=== PATIENT | female | born 1990 | race Caucasian/White ===

== ENCOUNTER 2023-04-24 12:40 | Inpatient (IN) | payer BC ==
[2023-04-24] MEDS: ELECTROLYTE-148 SOLN 1,000 ML IV SCH (13:00)
[2023-04-24 13:25] VITALS: BMI 25.4
[2023-04-24 13:40] LABS: BASO % 0.4 % (0-2.0); EOS % 0.3 % (0-4.5); HEMATOCRIT 37.8 % (32.4-45.2); HEMOGLOBIN 12.6 GM/dL (10.7-15.3); LYMPH % 14.4 % (8-40); MCH 30.6 pg (25.7-33.7); MCHC 33.5 g/dl (32.0-36.0); MEAN CELL VOLUME 91.3 fl (80-96); MEAN PLT VOLUME 7.1 fl (7.5-11.1); MONO % 5.5 % (3.8-10.2); NEUT % 79.4 % (42.8-82.8); PLATELET COUNT 338 10^3/uL (134-434); RBC 4.13 M/mm3 (3.60-5.2); RDW 13.1 % (11.6-15.6); WHITE BLOOD COUNT 12.7 K/mm3 (4.0-10.0)
[2023-04-24] MEDS ORDERED: FENTANYL/BUPIVACAINE/NS/PF - PCEA - 50 ML DISP.SYRIN EP ONE ×2 (13:41→17:54)
[2023-04-24 14:00] LABS: POTASSIUM 4.2 mmol/L (3.5-5.1)
[2023-04-24 14:02] LABS: BLOOD UREA NITROGEN 9.1 mg/dL (7-18); CALCIUM 8.9 mg/dL (8.5-10.1)
[2023-04-24 14:06] LABS: CREATININE 0.7 mg/dL (0.55-1.3)
[2023-04-24] MEDS ORDERED: NALOXONE HCL 0.4 MG/ML VIAL IVPUSH PRN (14:09)
[2023-04-24] MEDS: FENTANYL/BUPIVACAINE/NS/PF - PCEA - 50 ML DISP.SYRIN EP SCH (14:10)
[2023-04-24] MEDS ORDERED: LIDOCAINE HCL 1% PRESERVATIVE FREE - 30ML VIAL ONE (14:34)
[2023-04-24] MEDS ORDERED: OXYTOCIN 20 UNITS in 0.9% NS 20 UNIT/1,000 ML INFUS.BAG IV ONE (14:35)
[2023-04-24 15:10] LABS: ACTIVATED PTT 28.6 SECONDS (25.2-36.5); INR 0.91 (0.83-1.09); PROTHROMBIN TIME (PATIENT) 10.6 SEC (9.7-13.0)
[2023-04-24] MEDS: OXYTOCIN 30 UNITS in 0.9% NS 30 UNIT/500 ML INFUS.BAG IVPB SCH (15:30)
[2023-04-24] MEDS: OXYTOCIN 20 UNITS in 0.9% NS 20 UNIT/1,000 ML INFUS.BAG IV SCH (19:10)
[2023-04-24] MEDS ORDERED: WITCH HAZEL 50% (TUCKS) 40 PAD/JAR PAD TP PRN (19:39)
[2023-04-24] MEDS ORDERED: METHYLERGONOVINE MALEATE 0.2 MG/1 ML AMP IM PRN (19:39)
[2023-04-24] MEDS ORDERED: oxyCODONE HCL 5 MG TABLET PO PRN (19:39)
[2023-04-24] MEDS ORDERED: BISACODYL 10 MG SUPP.RECT RC PRN (19:39)
[2023-04-24 19:41] LABS: CORD BASE EXCESS -8.8 mmol/L (0-2); CORD HCO3 17.7 mmHg (20-29); CORD HCO3 20.1 mmHg (20-29); CORD PCO2 58.4 mmHg (30-78); CORD pH 7.18 (7.14-7.44)
[2023-04-24] MEDS: BENZOCAINE 28 GM HEMORRHOIDAL OINTMENT TP PRN (22:10)
[2023-04-24] MEDS: BENZOCAINE 20% 57 GM BOTTLE TP PRN (22:10)
[2023-04-24] MEDS: CEFTRIAXONE 1 GM in DEXTROSE 5%-WATER - 50 ML IVPB ONE (22:11)
[2023-04-24] MEDS: ACETAMINOPHEN 325 MG TABLET (FP) PO PRN (22:12)
[2023-04-25 00:48] VITALS: RESP 18
[2023-04-25 09:34] LABS: BASO % 0.4 % (0-2.0); EOS % 0.8 % (0-4.5); HEMATOCRIT 28.8 % (32.4-45.2); HEMOGLOBIN 10.1 GM/dL (10.7-15.3); LYMPH % 14.2 % (8-40); MCH 31.9 pg (25.7-33.7); MEAN CELL VOLUME 91.1 fl (80-96); MEAN PLT VOLUME 6.6 fl (7.5-11.1); MONO % 7.2 % (3.8-10.2); NEUT % 77.4 % (42.8-82.8); PLATELET COUNT 253 10^3/uL (134-434); RBC 3.16 M/mm3 (3.60-5.2); RDW 13.7 % (11.6-15.6); WHITE BLOOD COUNT 17.4 K/mm3 (4.0-10.0)
[2023-04-25] MEDS: PRENATAL VITAMINS W/ FOLIC ACID TABLET (FP) PO SCH (10:00)
[2023-04-25] MEDS: IBUPROFEN 600 MG TABLET (FP) PO PRN (10:00)
[2023-04-25] MEDS ORDERED: SENNOSIDES/DOCUSATE COMBO (SENNA PLUS) TABLET (UD) PO PRN (22:00)
[2023-04-26 11:23] VITALS: BP 125/76; PULSE 70; TEMP 98.2
== END 2023-04-26 15:45 | disposition home or self-care (01) | DRG 807 ==
LOC: JDEL 12:40 → JLDR 12:55 → J3W 21:30
PROVIDERS: ADMIT Obstetrics & Gynecology; ATTEND Obstetrics & Gynecology
PROC: 10D07Z6 Extraction of Products of Conception, Vacuum, Via Natural or Artificial Opening (ICD-10-PCS; principal; 2023-04-24)
PROC: 0W8NXZZ Division of Female Perineum, External Approach (ICD-10-PCS; 2023-04-24)
DX: O76 Abnormality in fetal heart rate and rhythm complicating labor and delivery (principal); Z37.0 Single live birth; Z3A.38 38 weeks gestation of pregnancy
CPT/HCPCS: 36415; 36600; 80048; 82803; 85025; 85610; 85730; 86780; 86850; 86900; 86901